=== PATIENT | male | born 1960 | race Caucasian/White ===

== ENCOUNTER → 2017-02-11 | Outpatient (CLI) | payer OTHER | END | disposition short-term general hospital (02) | LOC: CLORTH 10:03 | DX: M67.921 Unspecified disorder of synovium and tendon, right upper arm (principal); M67.922 Unspecified disorder of synovium and tendon, left upper arm; M19.011 Primary osteoarthritis, right shoulder; M19.012 Primary osteoarthritis, left shoulder ==